=== PATIENT | male | born 1960 | race Caucasian/White ===

== ENCOUNTER 2018-03-11 11:37 | Inpatient (IN) ==
[2018-03-11] MEDS ORDERED: LIDOCAINE 1% 20 ML VIAL SQ ONE (11:38)
[2018-03-11] MEDS ORDERED: LACTATED RINGERS 1,000 ML IV ONE (12:12)
[2018-03-11] MEDS ORDERED: ONDANSETRON 4 MG/2 ML VIAL IV ONE (12:12)
--- NOTE | 2018-03-11 12:22 | Emergency Department Note ---
General Adult HPI - General Chief complaint: Constipation Stated complaint: No BM 7 days, altered LOC Time Seen by Provider: 03/11/18 11:43 Source: patient, family Mode of arrival: ambulatory Limitations: no limitations - History of Present Illness HPI Narrative: 58-year-old male in ED with present. Patient states he's been blacked out for most of the week. states patient went to bed 9 days ago and slept for 3 days, and has been completely out of it since he woke. The last 3 days has been the worst with hallucinating auditory and visual. states patient has had a temperature, chills, been emotional and crying. states she's had a hard time getting food in his system. He did eat one day ago small amount has been drinking 2-3 large Gatorade bottles of water a day. Patient states he does not remember the last time he had a bowel movement. states she believes probably one week ago. also states patient has abscess upper right side of his mouth. Patient states he does have a headache 10/10 throbbing across fr ontal which has been there for 3 days. states patient has had 3-4 projectile vomiting episodes in the last 2 days. states patient has also been dizzy and has an unsteady gait. 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 Last time he used was a week and a half ago. Patient does not drink alcohol. Does smoke marijuana daily. Patient is allergic to penicillin and morphine. Currently takes no medications daily. Patient does have history in 2003 large pallet of plywood fell on him causing spinal compression. Patient has had history of hydrencephalitis. Onset (ago): day(s) (10) Location: head, abdomen Radiation: non-radiation Severity: severe Severity scale (1-10): 10 Quality: stabbing, aching, sharp Consistency: constant Improves with: none Worsens with: movement Associated symptoms: Reports: confusion, fever/chills, headaches, loss of appetite, malaise, nausea/vomiting, weakness. Denies: chest pain, cough, diaphoresis, rash, seizure, shortness of breath, syncope Treatments Prior to Arrival: none - Related Data Home Medications Medication Instructions Recorded Confirmed No Known Home Meds 03/11/18 03/11/18 Allergies Allergy/AdvReac Type Severity Reaction Status Date / Time morphine [MORPHINE] Allergy Unknown Unknown Verified 03/11/18 14:52 penicillin G [PENICILLIN G] Allergy Unknown Unknown Verified 03/11/18 14:52 Review of Systems All systems ED: reviewed and negative except as stated. Past Medical History - Social History smoking status: Current every day smoker Alcohol use: Reports: None Drug use: Reports: methamphetamine (past 10 years-smokes it) Physical Exam Limitations: no limitations General appearance: alert, anxious, other (uncontrollable shaking) Head: atraumatic, normocephalic, normal inspection Eye: Present: normal appearance, PERRL, EOMI, visual miranda intact. Absent: conjunctival injection, nystagmus, miosis (constriction), mydriasis (dilation) ENT: normal oropharynx, mucous membranes dry, TM's normal bilaterally, normal external ear exam Neck: Present: normal inspection. Absent: tenderness, lymphadenopathy Chest: Present: normal inspection, symmetric chest wall rise. Absent: tenderness Respiratory: Present: normal lung sounds bilaterally. Absent: respiratory distress, rales/crackles, wheezes, stridor, accessory muscle use Cardiovascular: Present: regular rate, normal rhythm. Absent: systolic murmur, diastolic murmur Abdominal: Present: soft, tenderness (LLQ/LRQ), normal bowel sounds. Absent: distention, guarding, rebound, rigidity Abdominal tenderness: Present: RLQ, LLQ Extremities: Present: normal inspection. Absent: tenderness, pedal edema Back: Present: normal inspection, CVA tenderness (R). Absent: CVA tenderness (L) Neurological: Present: alert, oriented X3, CN II-XII intact Psychiatric: Present: normal affect, normal mood. Absent: depressed, agitated, anxious Skin: Present: warm, dry, intact, normal color. Absent: rash, cyanosis, diaphoresis, erythema, pallor Course Vital Signs Temperature 100.6 F H 03/11/18 11:38 Pulse Rate 84 03/11/18 11:38 Respiratory Rate 20 03/11/18 11:38 Blood Pressure 102/62 03/11/18 11:38 Pulse Oximetry (%) 99 03/11/18 11:38 Temperature 101.5 F H 03/11/18 15:43 Pulse Rate 138 H 03/11/18 14:01 Respiratory Rate 27 H 03/11/18 14:49 Blood Pressure 140/92 03/11/18 14:39 Pulse Oximetry (%) 100 03/11/18 14:01 Medical Decision Making - MDM Narrative Medical decision making narrative: Patient originally alert and oriented able to discuss current history. Patient was shivering uncontrollably upon arrival. Patient's temperature at that time was 100.6 pulse was 84 blood pressure was 102/62 with pulse ox 99% pain was 7/10. Patient was provided Dilaudid 0.5 mg IV every 15 minutes to help reduce pain patient was also provided 1 mg Ativan and saline 1 L bolus, along with 4 mg IV Zofran. Patient continued to shiver even with warm blankets on. Sodium 129, BUN 21, creatinine 2.0 Second bag of normal saline 1 L was provided as well as more Dilaudid. Patient was provided 1000 mg by mouth Tylenol. Patient became increasingly more agitated to the point he was hallucinating and aggressive towards staff. Temperature reassessed and temporal read high, rectal was 106.6, 165 pulse, 140/92. By this time WBC had returned at 23.7 pt also had large leukocytes in his urine. Patient was provided 5 mg Haldol and 0.5 mg Dilaudid. This helped calm him for CT scan. Patient had Arroyo catheter placed and Arroyo catheter temperature 104.2. was consulted on patient history and presentation. CT head/brain results show: Moderate enlargement of the lateral and third ventricles suggesting moderate hydrocephalus possibly due to cerebral aqueduct stenosis. Ventricles have increased modestly from the [address] abdomen and pelvis:Moderate ileus with a large amount of colonic stool. No acute finding Consulted hospitalist Dr. Moon, who advised cooling protocol, which was already in process with ice bags and cool fluid, IV Ofirmev (which was held as pt temperature had reduced to 99 temporal, 1G IV Cefoxitin, and a lumbar puncture if Abdominal/pelvic CT returned without cause of infection. - Lab Data Lab results reviewed: Yes I reviewed the patient's lab results. Result diagrams: 03/11/18 12:56 03/11/18 12:17 Lab Results 03/11/18 03/11/18 03/11/18 Range/Units 12:17 12:17 12:56 WBC TNP RBC TNP Hgb TNP Hct TNP POC Hct 41.0 (41.0-55.0) % MCV TNP MCH TNP MCHC TNP RDW TNP Plt Count TNP MPV TNP Gran % (38.0-78.0) % Lymph % (Auto) (15.5-49.0) % [place] % (Auto) (1.0-12.0) % Eos % (Auto) (0.0-7.0) % Baso % (Auto) (0.0-2.0) % Gran # (1.8-8.0) K/mcL Lymph # (Auto) (1.5-4.8) K/mcL [place] # (Auto) (0.1-0.9) K/mcL Eos # (Auto) (0.0-0.7) K/mcL Baso # (Auto) (0.0-0.3) K/mcL Differential Comment VBG Lactic Acid 2.0 (0.5-2.0) mmol/L POC Sodium 131 L (133-145) mmol/L Sodium 129 L (133-145) mmol/L POC Potassium 4.4 (3.3-5.1) mmol/L Potassium 4.4 (3.3-5.1) mmol/L POC Chloride 91 L (96-108) mmol/L Chloride 89 L (96-108) mmol/L Carbon Dioxide 25 (22-30) mmol/L POC Total CO2 26 (22-30) mmol/L Anion Gap 15.0 (8-16) POC BUN 21 H (6-20) mg/dl BUN 20 (6-20) mg/dl Creatinine 2.0 H (0.7-1.2) mg/dl POC Creatinine 2.0 H (0.7-1.2) mg/dl GFR Calculation 36 Glucose 119 H (70-105) mg/dL POC Glucose 121 H (70-105) mg/dL Calcium 9.7 (8.6-10.4) mg/dl POC WB Ioniz Calcium 1.15 L (1.16-1.32) mmol/L Total Bilirubin 0.3 (0.0-1.0) mg/dL AST 13 (0-37) U/l ALT 17 (0-40) U/l Alkaline Phosphatase 129 H (39-117) U/L Total Protein 7.8 (5.9-8.4) gm/dL Albumin 3.7 (3.2-5.2) gm/dL Globulin 4.1 H (2.2-3.7) gm/dL Albumin/Globulin Ratio 0.9 L (1.0-2.3) Urine Color Urine Appearance Urine pH (5.0-9.0) Ur Specific [place] (1.000-1.035) Urine Protein (NEG) mg/dL Urine Glucose (UA) (NEG) mg/dL Urine Ketones (NEG) mg/dL Urine Occult Blood (<0.03) mg/dL Urine Nitrate (NEG) Urine Bilirubin (NEG) mg/dL Urine Urobilinogen (NEG) mg/dL Ur Leukocyte Esterase (NEG) /uL Urine RBC (0-1) /hpf Urine WBC (0-4) /hpf Ur Squamous Epith Cells (0-4) /hpf Urine Bacteria (0) /hpf Hyaline Casts (0-2) /lpf Urine Mucus (0) /hpf Ur Culture Indicated? Urine Opiates Screen (NONDETECTED) Ur Oxycodone Screen (NONDETECTED) Urine Methadone Screen (NONDETECTED) Acetaminophen ug/mL Ur Barbiturates Screen (NONDETECTED) Ur Phencyclidine Scrn (NONDETECTED) Ur Amphetamines Screen (NONDETECTED) U Benzodiazepines Scrn (NONDETECTED) Urine Cocaine Screen (NONDETECTED) U Marijuana (THC) Screen (NONDETECTED) 03/11/18 03/11/18 03/11/18 Range/Units 12:56 12:56 14:26 WBC 23.7 H RBC 4.08 L Hgb 11.8 L Hct 35.7 L POC Hct (41.0-55.0) % MCV 87.5 MCH 28.9 MCHC 33.0 RDW 13.8 Plt Count 159 MPV 9.7 Gran % 89.3 H (38.0-78.0) % Lymph % (Auto) 4.1 L (15.5-49.0) % [place] % (Auto) 6.4 (1.0-12.0) % Eos % (Auto) 0.1 (0.0-7.0) % Baso % (Auto) 0.1 (0.0-2.0) % Gran # 21.1 H (1.8-8.0) K/mcL Lymph # (Auto) 1.0 L (1.5-4.8) K/mcL [place] # (Auto) 1.5 H (0.1-0.9) K/mcL Eos # (Auto) 0 (0.0-0.7) K/mcL Baso # (Auto) 0 (0.0-0.3) K/mcL Differential Comment VBG Lactic Acid (0.5-2.0) mmol/L POC Sodium (133-145) mmol/L Sodium (133-145) mmol/L POC Potassium (3.3-5.1) mmol/L Potassium (3.3-5.1) mmol/L POC Chloride (96-108) mmol/L Chloride (96-108) mmol/L Carbon Dioxide (22-30) mmol/L POC Total CO2 (22-30) mmol/L Anion Gap (8-16) POC BUN (6-20) mg/dl BUN (6-20) mg/dl Creatinine (0.7-1.2) mg/dl POC Creatinine (0.7-1.2) mg/dl GFR Calculation Glucose (70-105) mg/dL POC Glucose (70-105) mg/dL Calcium (8.6-10.4) mg/dl POC WB Ioniz Calcium (1.16-1.32) mmol/L Total Bilirubin (0.0-1.0) mg/dL AST (0-37) U/l ALT (0-40) U/l Alkaline Phosphatase (39-117) U/L Total Protein (5.9-8.4) gm/dL Albumin (3.2-5.2) gm/dL Globulin (2.2-3.7) gm/dL Albumin/Globulin Ratio (1.0-2.3) Urine Color Urine Appearance Urine pH (5.0-9.0) Ur Specific [place] (1.000-1.035) Urine Protein (NEG) mg/dL Urine Glucose (UA) (NEG) mg/dL Urine Ketones (NEG) mg/dL Urine Occult Blood (<0.03) mg/dL Urine Nitrate (NEG) Urine Bilirubin (NEG) mg/dL Urine Urobilinogen (NEG) mg/dL Ur Leukocyte Esterase (NEG) /uL Urine RBC (0-1) /hpf Urine WBC (0-4) /hpf Ur Squamous Epith Cells (0-4) /hpf Urine Bacteria (0) /hpf Hyaline Casts (0-2) /lpf Urine Mucus (0) /hpf Ur Culture Indicated? Urine Opiates Screen Suspect positive A (NONDETECTED) Ur Oxycodone Screen None detected (NONDETECTED) Urine Methadone Screen None detected (NONDETECTED) Acetaminophen < 5.0 ug/mL Ur Barbiturates Screen None detected (NONDETECTED) Ur Phencyclidine Scrn None detected (NONDETECTED) Ur Amphetamines Screen None detected (NONDETECTED) U Benzodiazepines Scrn None detected (NONDETECTED) Urine Cocaine Screen None detected (NONDETECTED) U Marijuana (THC) Screen Suspect positive A (NONDETECTED) 03/11/18 Range/Units 14:26 WBC RBC Hgb Hct POC Hct (41.0-55.0) % MCV MCH MCHC RDW Plt Count MPV Gran % (38.0-78.0) % Lymph % (Auto) (15.5-49.0) % [place] % (Auto) (1.0-12.0) % Eos % (Auto) (0.0-7.0) % Baso % (Auto) (0.0-2.0) % Gran # (1.8-8.0) K/mcL Lymph # (Auto) (1.5-4.8) K/mcL [place] # (Auto) (0.1-0.9) K/mcL Eos # (Auto) (0.0-0.7) K/mcL Baso # (Auto) (0.0-0.3) K/mcL Differential Comment VBG Lactic Acid (0.5-2.0) mmol/L POC Sodium (133-145) mmol/L Sodium (133-145) mmol/L POC Potassium (3.3-5.1) mmol/L Potassium (3.3-5.1) mmol/L POC Chloride (96-108) mmol/L Chloride (96-108) mmol/L Carbon Dioxide (22-30) mmol/L POC Total CO2 (22-30) mmol/L Anion Gap (8-16) POC BUN (6-20) mg/dl BUN (6-20) mg/dl Creatinine (0.7-1.2) mg/dl POC Creatinine (0.7-1.2) mg/dl GFR Calculation Glucose (70-105) mg/dL POC Glucose (70-105) mg/dL Calcium (8.6-10.4) mg/dl POC WB Ioniz Calcium (1.16-1.32) mmol/L Total Bilirubin (0.0-1.0) mg/dL AST (0-37) U/l ALT (0-40) U/l Alkaline Phosphatase (39-117) U/L Total Protein (5.9-8.4) gm/dL Albumin (3.2-5.2) gm/dL Globulin (2.2-3.7) gm/dL Albumin/Globulin Ratio (1.0-2.3) Urine Color Yellow Urine Appearance Cloudy Urine pH 6.0 (5.0-9.0) Ur Specific [place] 1.011 (1.000-1.035) Urine Protein 100 A (NEG) mg/dL Urine Glucose (UA) Negative (NEG) mg/dL Urine Ketones Neg (NEG) mg/dL Urine Occult Blood 0.2 A (<0.03) mg/dL Urine Nitrate Neg (NEG) Urine Bilirubin Neg (NEG) mg/dL Urine Urobilinogen Neg (NEG) mg/dL Ur Leukocyte Esterase 500 A (NEG) /uL Urine RBC 15 H (0-1) /hpf Urine WBC > 182 H (0-4) /hpf Ur Squamous Epith Cells 3 (0-4) /hpf Urine Bacteria Few A (0) /hpf Hyaline Casts 9 H (0-2) /lpf Urine Mucus Few (0) /hpf Ur Culture Indicated? Yes Urine Opiates Screen (NONDETECTED) Ur Oxycodone Screen (NONDETECTED) Urine Methadone Screen (NONDETECTED) Acetaminophen ug/mL Ur Barbiturates Screen (NONDETECTED) Ur Phencyclidine Scrn (NONDETECTED) Ur Amphetamines Screen (NONDETECTED) U Benzodiazepines Scrn (NONDETECTED) Urine Cocaine Screen (NONDETECTED) U Marijuana (THC) Screen (NONDETECTED) - Radiology Data Radiology results reviewed: Yes I reviewed the patient's radiology results. Abdominal x-ray: IMPRESSION: No acute disease. Moderate colonic stool Chest x-ray: Normal CT head and brain: IMPRESSION: Moderate enlargement of the lateral and third ventricles suggesting moderate hydrocephalus possibly due to cerebral aqueduct stenosis. Ventricles have increased modestly from the [address] abdominal /pelvis: IMPRESSION: Moderate ileus with a large amount of colonic stool. No acute finding Disposition Pt seen by W[employer] TECHNICIAN/PA only: No (Hemanth) Clinical Impression: Urinary tract infection Qualifiers: Urinary tract infection type: acute pyelonephritis Qualified Code(s): N10 - Acute pyelonephritis Disposition: Xfer As Inpt ([facility]) Condition: Undetermined Referrals: Long Kumari MD [Primary Care Provider] - Time of Disposition: 17:36
[2018-03-11] MEDS: HYDROmorphone 2 MG/ML VIAL IV PRN ×3 (12:27→15:20)
[2018-03-11 13:07] LABS: ALT/SGPT 17 U/l (0-40); Albumin 3.7 gm/dL (3.2-5.2); Albumin/Globulin Ratio 0.9 (1.0-2.3); Alkaline Phosphatase 129 U/L (39-117); Blood Urea Nitrogen 20 mg/dl (6-20)
[2018-03-11] MEDS ORDERED: 0.9 % SODIUM CHLORIDE 1,000 ML IV ONE (13:10)
--- NOTE | 2018-03-11 13:21 | Cat Scan Report ---
CLINICAL INFORMATION: Fever and confusion. Evaluate for encephalitis COMPARISON: 07/10/2006. TECHNIQUE: 2.5 mm helical slices were obtained in the skull base to vertex. Following reconstruction, axial reformatted images were reviewed at bone and parenchymal windows. The exam was performed using radiation dose optimization techniques including, but not limited to, automated exposure control, adjustment of the mA and/or kV according to patient size and use of iterative reconstruction technique. FINDINGS: Moderate enlargement of the lateral and third ventricle with reduced caliber of the cerebral aqueduct and fourth ventricle again appreciated. This suggests moderate hydrocephalus - possibly related to cerebral aqueduct stenosis. The ventricles increased slightly from previous CT. The sulci, fissures and cisterns are normal in size. No focal lesion seen within the cerebrum, brainstem or cerebellum. Bone windows show no osseous abnormality. IMPRESSION: Moderate enlargement of the lateral and third ventricles suggesting moderate hydrocephalus possibly due to cerebral aqueduct stenosis. Ventricles have increased modestly from the [address] CT. Interpreted and Authenticated by: Armando Ramon 03/11/18
--- NOTE | 2018-03-11 13:22 | XRay Report ---
CLINICAL INFORMATION: Fever and confusion COMPARISON: None. FINDINGS: The heart size, mediastinum and pulmonary vessels are unremarkable. The lungs are clear. There are no effusions. The bones and soft tissues are within normal limits. IMPRESSION: Normal chest. Interpreted and Authenticated by: Armando Ramon 03/11/18
--- NOTE | 2018-03-11 13:23 | XRay Report ---
CLINICAL INFORMATION: constipation COMPARISON: None. FINDINGS: Moderate stool is present within the colon, however the colon is normal caliber. Stomach and small bowel are unremarkable. There is no free air, pathologic calcification, organomegaly or soft tissue mass. Solid-appearing L4-5 and L5-S1 anterior/posterior fusion changes noted IMPRESSION: No acute disease. Moderate colonic stool Interpreted and Authenticated by: Armando Ramon 03/11/18
[2018-03-11] MEDS ORDERED: LORazepam 2 MG/ML VIAL IV ONE (13:41)
[2018-03-11 13:59] LABS: Basophils # (Auto) 0 K/mcL (0.0-0.3); Basophils % (Auto) 0.1 % (0.0-2.0); Eosinophils # (Auto) 0 K/mcL (0.0-0.7); Eosinophils % (Auto) 0.1 % (0.0-7.0); Granulocytes % (Auto) 89.3 % (38.0-78.0); Lymphocytes % (Auto) 4.1 % (15.5-49.0); Mean Cell Volume 87.5 fL (80.0-100.0); Monocytes # (Auto) 1.5 K/mcL (0.1-0.9); Monocytes % (Auto) 6.4 % (1.0-12.0); Platelet Count 159 K/mcL (140-440); RBC 4.08 M/mcL (4.50-5.90); Red Cell Distribution Width 13.8 % (11.5-14.5)
[2018-03-11] MEDS ORDERED: LEVOFLOXACIN 750 MG/150 ML BAG IV ONE (14:20)
[2018-03-11] MEDS ORDERED: ACETAMINOPHEN 325 MG TABLET PO ONE ×2 (14:49→14:51)
[2018-03-11] MEDS ORDERED: ACETAMINOPHEN 1,000 MG/100 ML BOTTLE IV ONE (14:51)
[2018-03-11] MEDS ORDERED: HALOPERIDOL LACTATE 5 MG/ML VIAL IV ONE (14:59)
[2018-03-11 15:26] LABS: Amphetamine Screen,Urine NONE DETECTED (NONDETECTED); Appearance,Urine CLOUDY; Bacteria,Urine FEW /hpf (0); Benzodiazepines Screen,Urine NONE DETECTED (NONDETECTED); Bilirubin,Urine NEG (NEG); Cocaine Screen,Urine NONE DETECTED (NONDETECTED); Color,Urine YELLOW; Glucose,Urine (UA) NEGATIVE (NEG); Leukocyte Esterase,Urine 500 /uL (NEG); Mucus,Urine FEW /hpf (0); Opiate Screen,Urine SUSPECT POSITIVE (NONDETECTED); Oxycodone, Urine Screen NONE DETECTED (NONDETECTED); Protein,Urine 100 mg/dL (NEG); Specific Gravity,Urine 1.011 (1.000-1.035); Urine Blood 0.2 mg/dL (<0.03); Urine Hyaline Cast 9 /lpf (0-2); Urine RBC 15 /hpf (0-1); Urine Squamous Epithelial Cell 3 /hpf (0-4); Urine WBC > 182 /hpf (0-4); Urobilinogen,Urine NEG (NEG)
--- NOTE | 2018-03-11 15:57 | Cat Scan Report ---
CLINICAL INFORMATION: No bowel movements. Abdominal pain and distention COMPARISON: None. TECHNIQUE: 0.625 mm helical slices were obtained from the mid heart through the subtrochanteric regions. Following reconstruction, 2.5 mm sagittal, coronal and axial reformatted images were processed and reviewed at bone and soft tissue windows.The exam was performed using radiation dose optimization techniques including, but not limited to, automated exposure control, adjustment of the mA and/or kV according to patient size and use of iterative reconstruction technique. FINDINGS: Lung bases show mild atelectasis in the posterior lower lobes. No effusions. The visualized heart is normal. Images through the abdomen show the noncontrasted gallbladder and bile ducts, liver, both adrenal glands, spleen, pancreas and aorta to be normal. Minimal perinephric stranding in both kidneys is nonspecific and commonly seen. It is likely within normal limits. No specific renal abnormality.There is no free air, free fluid or adenopathy. There is a large amount stool within the colon which is moderately dilated. The appendix, small bowel and stomach are normal. Images of the pelvis show urinary bladder is decompressed with a Arroyo catheter which is properly positioned. Seminal vesicles and prostate are unremarkable. Bone windows show L4-5 and L5-S1 anterior/posterior fusion and wide laminectomy. No focal osseous lesions. IMPRESSION: Moderate ileus with a large amount of colonic stool. No acute finding Interpreted and Authenticated by: Armando Ramon 03/11/18
--- NOTE | 2018-03-11 17:15 | Internal Med History&Physical ---
Medical - H&P: [facility] Patient information: Note initiated : 03/11/18 at 5:15 pm Service Date, if different from initiated Date: [] Patient: Nic Paula a 58 y/o M admitted on for No BM 7 days, altered LOC. Chief Complaint: [] Chief complaint: fever , confusion History of present illness: Mr. Paula is a 58 year old M who presents to the ER after 7 days onset of fever, generalized myalgia weakness and progressive confusion. Patient has associated high-grade fever and noticed a substantial decline in function. On presentation patient had a fever of 106.2 and was subsequently cooling protoc ol was initiated. CT abdomen/CT scan was unremarkable. Patient endorsed to photophobia and neck stiffness and subsequently LP was performed. Hospitalist service was consulted after blood cultures/urine cultures were performed. Initial white count 23.7 with significant pyuria and bandemia along with systolic blood pressures in 80s. Patient was started on acyclovir/cefepime/vancomycin for empiric encephalitis/meningitis treatment along with aggressive crystalloid for severe sepsis with multiorgan dysfunction management. At the time of evaluation patient is able to open eyes and responding to commands he however endorses to photophobia myalgia and neck stiffness. He denies sick contacts. He denies incontinence/body rash. He denies travel out of country. He currently is disabled and lives along with his girlfriend and dog. Review of systems Positive for lack of appetite, generalized body ache, headache confusion, weakness. Otherwise 10 point review systems negative Medical - H&P: H Medical history: History of encephalitis 2005 treated at [facility] Tobacco dependence Pertinent family history: Unremarkable Smoking status: Current every day smoker Medical - H&P: Meds Home Medications Medication Instructions Recorded Confirmed Type No Known Home Meds 03/11/18 03/11/18 History Allergies Allergy/AdvReac Type Severity Reaction Status Date / Time morphine [MORPHINE] Allergy Intermediate Rash Verified 03/11/18 18:00 penicillin G [PENICILLIN G] Allergy Unknown Unknown Verified 03/11/18 14:52 Medical - H&P: Exam - Constitutional Vitals: Temp Pulse Resp BP Pulse Ox 101.5 F H 138 H 27 H 140/92 100 03/11/18 15:43 03/11/18 14:01 03/11/18 14:49 03/11/18 14:39 03/11/18 14:01 General appearance: no acute distress Exam: Eye movements symmetrical, photophobia noted Head normocephalic oral cavity dry No ear nose discharge Neck no lymphadenopathy, neck stiffness present S1-S2 tachycardia Diminished breath sounds bases Skin no suspicious lesion Abdomen soft No joint swelling erythema No lymphedema Psych anxious and fatigued but responding to commands Neuro nonfocal Medical - H&P: Reslt - Labs CBC & Chem 7: 03/12/18 03:27 03/12/18 03:27 Labs: Short CBC 03/11/18 03/11/18 Range/Units 12:17 12:56 WBC TNP 23.7 H Hgb TNP 11.8 L Hct TNP 35.7 L Plt Count TNP 159 BMP 03/11/18 12:17 Sodium 129 L Potassium 4.4 Chloride 89 L Carbon Dioxide 25 BUN 20 Creatinine 2.0 H Glucose 119 H Calcium 9.7 Liver Function 03/11/18 Range/Units 12:17 Total Bilirubin 0.3 (0.0-1.0) mg/dL AST 13 (0-37) U/l ALT 17 (0-40) U/l Alkaline Phosphatase 129 H (39-117) U/L Albumin 3.7 (3.2-5.2) gm/dL Urine 03/11/18 Range/Units 14:26 Urine Color Yellow Urine Appearance Cloudy Urine pH 6.0 (5.0-9.0) Ur Specific [place] 1.011 (1.000-1.035) Urine Protein 100 A (NEG) mg/dL Urine Glucose (UA) Negative (NEG) mg/dL Medical - H&P: A/P (1) Severe sepsis Current visit: Yes Status: Acute * Septic shock-unclear etiology likely genitourinary versus encephalitis or combination of both. Aggressive crystalloids, finney cultures, broad antibiotic and pressure support if needed. Admit to ICU with night Butler score 18 and high risk mortality. Multiple underlying endorgan dysfunction noted on admission(AMS/acute renal failure) * Acute mental status change likely encephalitis-start empiric acyclovir. Appreciate ID consult * Complicated UTI-pancultures/antibiotic * Acute renal failure-endorgan dysfunction in light of septic shock. Crystalloid/pressure support/monitor renal function * Full code * Prophylaxis ED Plan * Septic shock management per guidelines * Empiric encephalitis antiviral/antibiotic coverage * ID consult * Monitor renal function * Encephalitis panel/blood culture/urine culture * ICU admit Overall very high complexity admitting this patient with multiorgan including encephalitis/renal failure requiring critical care management in ICU and close hemodynamic monitoring. 70 minutes spent on history and physical, additionally over 35 minutes spent on stabilizing patient in the setting of septic shock from encephalitis/complicated UTI with evidence of endorgan dysfunction, ICU care
[2018-03-11] MEDS ORDERED: ACETAMINOPHEN 325 MG TABLET PO PRN (17:48)
[2018-03-11] MEDS ORDERED: ONDANSETRON 4 MG/2 ML VIAL IV PRN (17:48)
[2018-03-11] MEDS ORDERED: POTASSIUM CHLORIDE 20 MEQ PACKET PO PRN (17:48)
[2018-03-11] MEDS ORDERED: VANCOMYCIN PER PHARMACY IV SCH (17:48)
[2018-03-11] MEDS ORDERED: MAGNESIUM SULFATE 2 GM/50 ML BAG IV PRN (17:48)
--- NOTE | 2018-03-11 17:50 | XRay Report ---
CLINICAL INFORMATION: Obtundation and fever. Possible encephalitis meningitis COMPARISON: None. TECHNIQUE: The procedure and risks including the possibility of bleeding, infection, CSF leak requiring blood patch were explained to the patient. Under fluoroscopic guidance, the right L2-3 intralaminar space was marked, prepped and locally anesthetized with 1% Lidocaine using a 25 gauge needle. A 22 gauge spinal needle was placed under fluoroscopy through the intralaminar space into the thecal sac. Approximately 18 cc of clear CSF was aspirated and sent to pathology for requested studies. There was no apparent complication. The patient tolerated procedure well. Fluoroscopy time 43 seconds IMPRESSION: Successful fluoroscopic guided lumbar puncture yielding 18 cc of clear CSF. No apparent complications. Interpreted and Authenticated by: Armando Ramon 03/11/18
[2018-03-11] MEDS: 0.9 % SODIUM CHLORIDE 1,000 ML IV SCH (17:57)
[2018-03-11] MEDS ORDERED: CEFEPIME 2 GM in DEXTROSE 5% IN WATER 50 ML IV SCH ×2 (18:16→19:00)
[2018-03-11 18:35] LABS: Glucose,CSF 82 mg/dL (45-75)
[2018-03-11] MEDS: SODIUM CHLORIDE 0.9% IV SCH ×2 (18:39→23:24)
[2018-03-11] MEDS: ACYCLOVIR SODIUM IV SCH ×2 (18:39→23:24)
[2018-03-11 18:49] LABS: C-Reactive Protein 32.1 mg/dl (0.0-0.8)
[2018-03-11 19:14] LABS: Appearance,CSF CLEAR; Nucleated Cells,CSF 0 /cumm (0-5); Red Blood Cell,CSF 0 /cumm (0-1)
[2018-03-11] MEDS ORDERED: ACYCLOVIR SODIUM 500 MG VIAL IV SCH (20:00)
[2018-03-11 20:12] LABS: Lymphocytes,CSF 38 % (40-80); Monocytes,CSF 63 % (15-45); Total Cell Ct,CSF 16
[2018-03-11] MEDS ORDERED: CEFEPIME 2 GM VIAL ONE (20:13)
[2018-03-11] MEDS: DOCUSATE SODIUM 100 MG CAPSULE PO SCH (20:32)
[2018-03-11] MEDS ORDERED: VANCOMYCIN 1,000 MG in 0.9 % SODIUM CHLORIDE 250 ML IV SCH (21:00)
[2018-03-11] MEDS ORDERED: SENNOSIDES/DOCUSATE SODIUM 1 TAB TABLET PO SCH (21:00)
[2018-03-11] MEDS: ACETAMINOPHEN 1,000 MG/100 ML BOTTLE IV PRN (21:56)
[2018-03-11] MEDS: 0.9 % SODIUM CHLORIDE 10 ML SYRINGE IV SCH (22:02)
[2018-03-12] MEDS: CEFEPIME 2 GM in DEXTROSE 5% IN WATER 50 ML IV SCH ×4 (00:39→21:11)
[2018-03-12] MEDS: ACETAMINOPHEN 1,000 MG/100 ML BOTTLE IV PRN ×3 (03:20→22:15)
[2018-03-12] MEDS: 0.9 % SODIUM CHLORIDE 1,000 ML IV SCH ×3 (04:01→15:02)
[2018-03-12 05:45] LABS: Mean Cell Volume 88.3 fL (80.0-100.0); Platelet Count 147 K/mcL (140-440); RBC 3.89 M/mcL (4.50-5.90); Red Cell Distribution Width 14.3 % (11.5-14.5)
[2018-03-12] MEDS: ACYCLOVIR SODIUM IV SCH (05:47)
[2018-03-12] MEDS: SODIUM CHLORIDE 0.9% IV SCH (05:47)
[2018-03-12] MEDS: 0.9 % SODIUM CHLORIDE 10 ML SYRINGE IV SCH ×3 (05:48→21:12)
[2018-03-12 06:09] LABS: ALT/SGPT 14 U/l (0-40); Albumin 2.5 gm/dL (3.2-5.2); Albumin/Globulin Ratio 0.7 (1.0-2.3); Alkaline Phosphatase 134 U/L (39-117); Bilirubin,Direct < 0.2 mg/dL (0.0-0.3); Blood Urea Nitrogen 17 mg/dl (6-20); Gamma Glutamyl Transpeptidase 55 U/L (8-61); Uric Acid 5.2 mg/dL (2.5-8.0)
[2018-03-12 09:27] LABS: Band Neutrophils % 40 % (0-10); Lymphocytes % 8 % (15-49); Metamyelocytes % 1 % (0-0); Monocytes % (Manual) 4 % (1-12); Myelocytes % 1 % (0-0); Platelet Estimate NORMAL (NORMAL); RBC Morphology NORMAL (NORMAL); Segmented Neutrophils % 46 % (38-78); Toxic Granulation FEW (NONE SEEN)
--- NOTE | 2018-03-12 09:41 | Emergency Department Note ---
ED Note Addendum Note Addendum: I saw this patient with Jacy TURNER. I agree with her evaluation management documentation. However we will need to have the following diagnoses: Sepsis with multiorgan failure, acute kidney injury,UTI versus pyelonephritis, encephalitis. We discussed the need for admission and Dr. Chester brought the pa tient in after lumbar puncture was done
[2018-03-12] MEDS: DOCUSATE SODIUM 100 MG CAPSULE PO SCH ×2 (09:55→21:11)
--- NOTE | 2018-03-12 10:28 | Internal Med Progress Note ---
Medical - PN: Subj Patient information: Note initiated : 03/12/18 at 10:25 am Service Date, if different from initiated Date: [] Patient: Nic Paula a 58 y/o M admitted on 03/11/18 for No BM 7 days, altered LOC. Chief Complaint: [] Interval history: Mr. Paula is a 58 year old M who presents to the ER after 7 days onset of fever, generalized myalgia weakness and progressive confusion. Patient has associated high-grade fever and noticed a substantial decline in function. On presentation patient had a fever of 106.2 and was subsequently cooling protocol was initiated. CT abdomen/CT scan was unremarkable. Patient endorsed to photophobia and neck stiffness and subsequently LP was performed. Hospitalist service was consulted after blood cultures/urine cultures were performed. Initial white count 23.7 with significant pyuria and bandemia along with systolic blood pressures in 80s. Patient was started on acyclovir/cefepime/vancomycin for empiric encephalitis/meningitis treatment along with aggressive crystalloid for severe sepsis with multiorgan dysfunction management. At the time of evaluation patient is able to open eyes and responding to commands he however endorses to photophobia myalgia and neck stiffness. He denies sick contacts. He denies incontinence/body rash. He denies travel out of country. He currently is disabled and lives along with his girlfriend and dog. 03/12-patient clinically improved. Hemodynamics stabilizing with map over 70. White count down from 23,000-16.7. E. coli bacteremia. Continue cefepime. Lumbar puncture 16 CSF WBCs however in the setting of gram-negative bacteremia, likely etiology for mental status change sepsis and endorgan dysfunction. DC acyclovir and continue cefepime. Repeat surveillance blood cultures. Continue ICU care. - Constitutional Vitals: Vital Signs Temp Pulse Resp BP Pulse Ox 97.5 F 101 H 14 93/67 98 03/12/18 07:30 03/12/18 07:38 03/12/18 07:30 03/12/18 07:30 03/12/18 07:38 Period Temp Pulse Resp BP Sys/Mckay Pulse Ox Last 24 Hr 70.1 F-106.2 F 84-150 9-27 79-143/48-92 74-100 Intake and Output 03/11/18 03/12/18 03/12/18 21:59 05:59 13:59 Intake Total 1300 1960 50 Output Total 1625 1810 110 Balance -325 150 -60 Weight 144 lb 12.8 oz Intake & Output: Intake & Output 03/11/18 03/12/18 03/12/18 21:59 05:59 13:59 Intake Total 1300 1960 50 Output Total 1625 1810 110 Balance -325 150 -60 Weight 144 lb 12.8 oz Intake: IV 1300 1600 50 Sodium Chloride 0.9% 1,000 ml @ 1000 1000 100 mls/hr IV .Q10H JOSHUA Rx#: [id number] Zovirax 600 mg In Sodium 100 100 Chloride 0.9% 100 ml @ 100 mls/ hr IV Q8H JOSHUA Rx#:[id number] Maxipime 2 gm In Dextrose 5% in 50 50 50 Water 50 ml @ 100 mls/hr IV Q8H JOSHUA Rx#:[id number] Vancomycin 1,000 mg In Sodium 250 Chloride 0.9% 250 ml @ 250 mls/ hr IV Q12H JOSHUA Rx#:[id number] Oral 0 360 Output: Urine Catheter Amount 1622 1810 110 Other: Urine Appearance Clear Clear Clear Sediment Sediment Sediment Uretheral ([place]royo) Clear Clear Clear Sediment Urine Color Pale Straw Straw Uretheral ([place]royo) Straw Straw Straw Urine Odor Normal General appearance: no acute distress Exam: Feeling weak and exhausted Nonlabored breathing Minimally anxious No telemetry event Medical - PN: Obj Da - Labs CBC & Chem 7: 03/12/18 03:27 03/12/18 03:27 Labs: Abnormal Lab Results 03/12/18 03/12/18 03/11/18 03:27 03:27 18:04 WBC 16.7 H RBC 3.89 L Hgb 11.3 L Hct 34.4 L Gran % Lymph % (Auto) Gran # Lymph # (Auto) [place] # (Auto) Band Neutrophils % 40 H Lymphocytes % 8 L Metamyelocytes % 1 H Myelocytes % 1 H WBC Morphology Abnorm A Toxic Granulation Few A ESR POC Sodium Sodium POC Chloride Chloride POC BUN Creatinine 1.6 H POC Creatinine Glucose POC Glucose POC WB Ioniz Calcium Phosphorus 2.6 L Alkaline Phosphatase 134 H C-Reactive Protein 32.1 H Albumin 2.5 L Globulin 3.8 H Albumin/Globulin Ratio 0.7 L Urine Protein Urine Occult Blood Ur Leukocyte Esterase Urine RBC Urine WBC Urine Bacteria Hyaline Casts CSF Lymphocytes CSF Monocytes CSF Glucose Urine Opiates Screen U Marijuana (THC) Screen 03/11/18 03/11/18 03/11/18 18:04 16:15 14:26 WBC RBC Hgb Hct Gran % Lymph % (Auto) Gran # Lymph # (Auto) [place] # (Auto) Band Neutrophils % Lymphocytes % Metamyelocytes % Myelocytes % WBC Morphology Toxic Granulation ESR 80 H POC Sodium Sodium POC Chloride Chloride POC BUN Creatinine POC Creatinine Glucose POC Glucose POC WB Ioniz Calcium Phosphorus Alkaline Phosphatase C-Reactive Protein Albumin Globulin Albumin/Globulin Ratio Urine Protein 100 A Urine Occult Blood 0.2 A Ur Leukocyte Esterase 500 A Urine RBC 15 H Urine WBC > 182 H Urine Bacteria Few A Hyaline Casts 9 H CSF Lymphocytes 38 L CSF Monocytes 63 H CSF Glucose 82 H Urine Opiates Screen U Marijuana (THC) Screen 03/11/18 03/11/18 03/11/18 14:26 12:56 12:17 WBC 23.7 H RBC 4.08 L Hgb 11.8 L Hct 35.7 L Gran % 89.3 H Lymph % (Auto) 4.1 L Gran # 21.1 H Lymph # (Auto) 1.0 L [place] # (Auto) 1.5 H Band Neutrophils % Lymphocytes % Metamyelocytes % Myelocytes % WBC Morphology Toxic Granulation ESR POC Sodium 131 L Sodium 129 L POC Chloride 91 L Chloride 89 L POC BUN 21 H Creatinine 2.0 H POC Creatinine 2.0 H Glucose 119 H POC Glucose 121 H POC WB Ioniz Calcium 1.15 L Phosphorus Alkaline Phosphatase 129 H C-Reactive Protein Albumin Globulin 4.1 H Albumin/Globulin Ratio 0.9 L Urine Protein Urine Occult Blood Ur Leukocyte Esterase Urine RBC Urine WBC Urine Bacteria Hyaline Casts CSF Lymphocytes CSF Monocytes CSF Glucose Urine Opiates Screen Suspect positive A U Marijuana (THC) Screen Suspect positive A Meds: Medications Acetaminophen (Tylenol) 650 mg PO Q4-6HP PRN PRN Reason: PAIN/FEVER > 101 Docusate Sodium (Colace) 100 mg PO BID [facility] Last Admin: 03/12/18 09:55 Dose: 100 mg Documented by: Magnesium Sulfate (Magnesium Sulfate) 2 gm in 50 mls @ 50 mls/hr IV UD PRN PRN Reason: MG = or < 1.7 Sodium Chloride (Sodium Chloride 0.9%) 1,000 mls @ 100 mls/hr IV .Q10H [facility] Stop: 03/13/18 09:47 Last Admin: 03/12/18 04:01 Dose: 100 mls/hr Documented by: Acetaminophen (Ofirmev) 1,000 mg in 100 mls @ 200 mls/hr IV Q6HP PRN PRN Reason: PAIN/FEVER > 101 Last Infusion: 03/12/18 04:01 Dose: Infused Documented by: Cefepime HCl 2 gm/ Dextrose 50 mls @ 100 mls/hr IV Q8H [facility] Last Infusion: 03/12/18 08:40 Dose: Infused Documented by: Ondansetron HCl (Zofran) 4 mg IV Q4-6HP PRN PRN Reason: Nausea And Vomiting Pneumococcal Polyvalent Vaccine (Pneumovax 23) 0.5 ml IM .ONCE ONE Stop: 03/13/18 10:01 Potassium Chloride (Klor-Con) 40 meq PO DAILYP PRN PRN Reason: K+ < 3.5 Senna/Docusate Sodium (Senna Plus Tablet) 1 tab PO HS [facility] Last Admin: 03/11/18 20:32 Dose: 1 tab Documented by: Sodium Chloride (Saline Flush) 10 ml IV Q8 [facility] Last Admin: 03/12/18 05:48 Dose: 10 ml Documented by: Medical - PN: A/P - Time Spent With Patient Total time spent is greater than 50% in coordination of care (as documented) at patient's floor/unit and/or counseling patient: 25 - 35 minutes (1) Severe sepsis Status: Acute Assessment and plan: * Gram-negative bacteremia-continue surveillance cultures. Source likely . Broad antibiotic coverage/ID consult * Septic shock-secondary to gram-negative bacteremia. Likely source. C ontinue broad antibiotic coverage/surveillance cultures/management per guidelines. White count down from 23-16. 40% bandemia. Multiple underlying endorgan dysfunction * Acute mental status change- likely secondary to sepsis end endorgan dysfunction-CSF 16 WBCs. Per ID unlikely secondary to encephalitis. DC acyclovir per ID * Complicated GNR UTI-continue antibiotic coverage * Acute renal failure-clinically improving. Creatinine down from 2-1.6 * Full code * Prophylaxis ED Plan * Continue broad antibiotic/surveillance cultures * DC acyclovir per ID * Monitor renal function * Encephalitis panel/blood culture/urine culture Current Visit: Yes Medical - PN: Qual - VTE Deep Vein Thrombosis/Pulmonary Embolism Present on Admission: No
--- NOTE | 2018-03-12 13:33 | Magnetic Resonance Report ---
CLINICAL INFORMATION: Hydrocephalus COMPARISON: Head CT 07/10/2006 and 03/11/2018 TECHNIQUE:Sagittal T1 FLAIR, axial T1 FLAIR, T2 FLAIR propeller, T2 propeller, gradient, diffusion, ADC and coronal T2 weighted images were acquired. FINDINGS: The proximal aqueduct of Sylvius has a funnel-shape with moderate narrowing distally. This has resulted in moderate obstructive hydrocephalus with moderate dilatation of both lateral and third ventricles. The corpus callosum is thinned and stretched superiorly due to lateral ventricle dilatation. There is also mild downward displacement of the third ventricle. The fourth ventricle and foramen of Luschka and Magendie, inferior to the cerebral aqueduct, are normal size - as expected in this condition. There is no evidence of transependymal CSF migration. Scattered chronic ischemic foci are noted in the the cerebral white matter. No restricted diffusion, edema, mass effect or hemorrhage. Signal void in the cerebral arteries, extra-axial cranial nerves, pituitary and orbits are all normal. 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 This is likely congenital, as there is no evidence of postinflammatory gliosis in the adjacent midbrain tectum or other secondary causes to explain aqueduct narrowing. The lateral and third ventricles show only slight increase in size between the [address], thus the condition does not appear to be significantly progressive Few scattered ischemic foci in the cerebral white matter Interpreted and Authenticated by: Armando Ramon 03/12/18
[2018-03-12] MEDS ORDERED: ACETAMINOPHEN 325 MG TABLET PO PRN (14:28)
[2018-03-12] MEDS ORDERED: MAGNESIUM SULFATE 2 GM/50 ML BAG IV PRN (14:28)
[2018-03-12] MEDS ORDERED: POTASSIUM CHLORIDE 20 MEQ PACKET PO PRN (14:28)
--- NOTE | 2018-03-12 15:59 | Infectious Disease Consult ---
History of Present Illness Patient information: Note initiated : 03/12/18 at 3:24 pm Service Date, if different from initiated Date: [] Patient: Nic Paula 58 y/o M admitted on 03/11/18 for No BM 7 days, altered LOC. Chief Complaint: [] Consult date: 03/12/18 Requesting Physician: Rich Moon Reason for Consult: Sepsis with concerns for [employer] infection Chief complaint: I was sick, having chills History of present illness: 58 year old man with PMHx pertinent for: - chronic low back pain after an accident in 2013 - opoid abuse Pt was brought by his on 03/11 with c/o of fever, shivering, body aches, and confusion. Pt does not remember the temp numbers, as he has difficulty remembering things now. Patient also endorsed having low or no appetite for the last few days, being constipated for about a week. He endorsed taking hydrocodone tablets [from his friend] to relieve his back pain before he was admitted. Patient had denied any sick contacts, rash, international travel. At admission, his rectal temp was 106.2 F, HR 138, BP 140/92, RR 20, and satting 99% on RA. Pt's WBC was 23.7 with bandemia, Na 129, Cl 89, Cr 2. Pt underwent CT head which showed "Moderate enlargement of the lateral and third ventricles suggesting moderate hydrocephalus possibly due to cerebral aqueduct stenosis. Ventricles have increased modestly from the 2007 CT". Patient underwent successful fluoroscopic guided lumbar puncture yielding 18 cc of clear CSF, which was sent for testing and cultures. Patient also underwent CT abdomen which showed "Moderate ileus with a large amount of colonic stool and minimal perinephric stranding in both kidneys." 2 sets of blood cultures and urine cultures were also sent. Patient was admitted and subsequently cooling protocol was initiated. Patient was started on IV acyclovir, IV cefepime, IV vancomycin for empiric encephalitis/meningitis treatment along with IV fluids. Patient improved in terms of his mental status and was alert, awake, oriented and he was transferred to ICU. He had expressed photophobia and neck stiffness at that time. As of today, his white cell count is improved to 16.7. Blood cultures were positive for E. coli [sensitivities pending] from 1 out of 2 sets along with positive urine cultures for E. coli [more than 100,000 CFU's per mL]. His CSF WBCs were 16 [38% lymphocytes], CSF protein of 27 and CSF glucose of 82, Gram stain was negative for any organisms and cultures were no growth till date. The send out test on CSF were pending. Review of Systems ROS unobtainable: due to mental status Past History Past medical history: History of encephalitis in 2004 Tobacco dependence Past family history: Not pertinent to the current presentation Past social history: Lives with her and dog in [place]. Mentions that the carpet is very dirty in the apartment and has not been changed since 1973 Medications and Allergies Home Medications Medication Instructions Recorded Confirmed Type No Known Home Meds 03/11/18 03/11/18 History Allergies Allergy/AdvReac Type Severity Reaction Status Date / Time morphine [MORPHINE] Allergy Intermediate Rash Verified 03/11/18 18:00 penicillin G [PENICILLIN G] Allergy Unknown Unknown Verified 03/11/18 14:52 Physical Examination Vital signs: Temp Pulse Resp BP Pulse Ox 35.9 C L 103 H 15 109/95 96 03/12/18 14:03 03/12/18 08:00 03/12/18 14:30 03/12/18 14:03 03/12/18 08:00 General appearance: no acute distress Eyes pulmonary: nonicteric Effort: normal Auscultation: bilateral: clear Cardiovascular: regular rate and rhythm Gastrointestinal: normoactive bowel sounds, soft, non-tender Integumentary: normal Extremities: no cyanosis, no edema pupils equal and round, other (Extraocular movements symmetric in all miranda of vision, no photophobia untorsed light exam, no neck stiffness) mood appropriate Results - Laboratory Findings CBC and BMP: 03/12/18 03:27 03/12/18 03:27 Abnormal lab findings: Abnormal Labs 03/11/18 03/11/18 03/11/18 12:17 12:56 14:26 WBC 23.7 H RBC 4.08 L Hgb 11.8 L Hct 35.7 L Gran % 89.3 H Lymph % (Auto) 4.1 L Gran # 21.1 H Lymph # (Auto) 1.0 L [place] # (Auto) 1.5 H Band Neutrophils % Lymphocytes % Metamyelocytes % Myelocytes % WBC Morphology Toxic Granulation ESR POC Sodium 131 L Sodium 129 L POC Chloride 91 L Chloride 89 L POC BUN 21 H Creatinine 2.0 H POC Creatinine 2.0 H Glucose 119 H POC Glucose 121 H POC WB Ioniz Calcium 1.15 L Phosphorus Alkaline Phosphatase 129 H C-Reactive Protein Albumin Globulin 4.1 H Albumin/Globulin Ratio 0.9 L Urine Protein Urine Occult Blood Ur Leukocyte Esterase Urine RBC Urine WBC Urine Bacteria Hyaline Casts CSF Lymphocytes CSF Monocytes CSF Glucose Urine Opiates Screen Suspect positive A U Marijuana (THC) Screen Suspect positive A 03/11/18 03/11/18 03/11/18 14:26 16:15 18:04 WBC RBC Hgb Hct Gran % Lymph % (Auto) Gran # Lymph # (Auto) [place] # (Auto) Band Neutrophils % Lymphocytes % Metamyelocytes % Myelocytes % WBC Morphology Toxic Granulation ESR 80 H POC Sodium Sodium POC Chloride Chloride POC BUN Creatinine POC Creatinine Glucose POC Glucose POC WB Ioniz Calcium Phosphorus Alkaline Phosphatase C-Reactive Protein Albumin Globulin Albumin/Globulin Ratio Urine Protein 100 A Urine Occult Blood 0.2 A Ur Leukocyte Esterase 500 A Urine RBC 15 H Urine WBC > 182 H Urine Bacteria Few A Hyaline Casts 9 H CSF Lymphocytes 38 L CSF Monocytes 63 H CSF Glucose 82 H Urine Opiates Screen U Marijuana (THC) Screen 03/11/18 03/12/18 03/12/18 18:04 03:27 03:27 WBC 16.7 H RBC 3.89 L Hgb 11.3 L Hct 34.4 L Gran % Lymph % (Auto) Gran # Lymph # (Auto) [place] # (Auto) Band Neutrophils % 40 H Lymphocytes % 8 L Metamyelocytes % 1 H Myelocytes % 1 H WBC Morphology Abnorm A Toxic Granulation Few A ESR POC Sodium Sodium POC Chloride Chloride POC BUN Creatinine 1.6 H POC Creatinine Glucose POC Glucose POC WB Ioniz Calcium Phosphorus 2.6 L Alkaline Phosphatase 134 H C-Reactive Protein 32.1 H Albumin 2.5 L Globulin 3.8 H Albumin/Globulin Ratio 0.7 L Urine Protein Urine Occult Blood Ur Leukocyte Esterase Urine RBC Urine WBC Urine Bacteria Hyaline Casts CSF Lymphocytes CSF Monocytes CSF Glucose Urine Opiates Screen U Marijuana (THC) Screen Microbiology: Microbiology 03/11/18 14:26 Urine - Clean Void Mid-Stream Urine Culture - Preliminary Gram negative bacillus 03/11/18 16:15 Cerebral Spinal Fluid - Cerebral Spinal Fluid Gram Stain - Final 03/11/18 16:15 Cerebral Spinal Fluid - Cerebral Spinal Fluid CSF Culture - Preliminary 03/11/18 14:40 Blood Blood Culture - Preliminary Gram negative bacillus 03/11/18 17:51 Groin - Both Right and Left MRSA (PCR) - Final Assessment and Plan - Narrative A/P Narrative: Assessment: 1. E. coli bacteremia and urinary tract infection: Infection was severe as it led to sepsis and also have been effect on the functioning of patient's brain contributing to confusion Likely sources urinary tract 2. Sepsis: Secondary to (1) 3. HSV encephalitis seems less likely for following reasons: Slightly elevated WBCs in the CSF with low percentage of lymphocytes, MRI negative for any temporal lobe enhancement or suggestive of any infection of the brain parenchyma, rapid improvement in mental status after hydration, and the fact that altered mental status could also be explained due to low sodium at the time of admission Recommendations: Continue IV cefepime 2 g every 8 hours for now. Will de-escalate based on sensitivities [to be available tomorrow] For reasons mentioned above, we can stop IV vancomycin, IV acyclovir Await repeat cultures sent by primary team Will decide duration of treatment based on if repeat cultures are positive and clinical course. As of now, I am thinking of a 2-week course of antibiotics We will follow Pedro Pablo Jain MD Infectious disease
[2018-03-12] MEDS: ONDANSETRON 4 MG/2 ML VIAL IV PRN ×2 (16:09→22:30)
[2018-03-12] MEDS: SENNOSIDES/DOCUSATE SODIUM 1 TAB TABLET PO SCH (21:11)
[2018-03-13] MEDS: 0.9 % SODIUM CHLORIDE 1,000 ML IV SCH (02:50)
[2018-03-13] MEDS: CEFEPIME 2 GM in DEXTROSE 5% IN WATER 50 ML IV SCH ×3 (05:36→21:07)
[2018-03-13] MEDS: 0.9 % SODIUM CHLORIDE 10 ML SYRINGE IV SCH ×3 (05:36→21:49)
[2018-03-13 05:49] LABS: ALT/SGPT 13 U/l (0-40); Albumin 2.4 gm/dL (3.2-5.2); Albumin/Globulin Ratio 0.7 (1.0-2.3); Alkaline Phosphatase 149 U/L (39-117); Bilirubin,Direct < 0.2 mg/dL (0.0-0.3); Blood Urea Nitrogen 15 mg/dl (6-20); Gamma Glutamyl Transpeptidase 60 U/L (8-61); Uric Acid 4.4 mg/dL (2.5-8.0)
[2018-03-13 06:50] LABS: Mean Corpuscular HGB Conc 34.8 g/dL (31.0-36.0); Platelet Count 222 K/mcL (140-440); RBC 3.72 M/mcL (4.50-5.90); Red Cell Distribution Width 13.6 % (11.5-14.5)
[2018-03-13 06:57] LABS: Band Neutrophils % 4 % (0-10); Eosinophils % (Manual) 1 % (0-7); Lymphocytes % 7 % (15-49); Monocytes % (Manual) 2 % (1-12); Platelet Estimate NORMAL (NORMAL); RBC Morphology NORMAL (NORMAL); Segmented Neutrophils % 86 % (38-78)
[2018-03-13] MEDS: OMEPRAZOLE 20 MG CAPSULE PO SCH (07:33)
--- NOTE | 2018-03-13 08:42 | Infectious Disease Prog Note ---
Subjective Patient information: Note initiated : 03/13/18 at 8:39 am Service Date, if different from initiated Date: [] Patient: Nic Paula 58 y/o M admitted on 03/11/18 for No BM 7 days, altered LOC. Chief Complaint: [] Interval history: Patient is feeling much better. He had occasional fevers last night. Denies any chills, nausea, vomiting, diarrhea. Had one big bowel movement early this morning, give him a huge relief as he was constipated for a week. Denies any shortness of breath, chest pain, joint pain, neck stiffness, photophobia. Objective Objective Narrative: ao x 3, in nad no thrush chest cta s1 s2 normal bs ++ soft, mild discomfort on deep palpation, no rebound no edema no knee joint swelling/redness/warmth - Vital Signs Vital signs: Vital Signs Temp Pulse Resp BP BP Pulse Ox 03/13/18 04:00 37.3 C H 108 H 14 104/76 95 03/13/18 00:01 38.6 C H 16 101/72 96 03/12/18 23:00 38.6 C H 03/12/18 22:15 39.2 C H 03/12/18 20:00 102 H 15 97 03/12/18 19:40 37.1 C 12 107/72 03/12/18 19:21 37.2 C 15 107/72 97 03/12/18 18:11 37.6 C H 12 03/12/18 16:45 38.1 C H 03/12/18 16:09 39.3 C H 19 126/73 97 03/12/18 16:06 21 03/12/18 16:00 39.3 C H 03/12/18 15:02 37.4 C H 15 125/64 98 03/12/18 14:30 15 03/12/18 14:03 35.9 C L 14 109/95 03/12/18 13:00 36.7 C 16 104/70 03/12/18 12:10 17 03/12/18 12:00 37.4 C H 15 97/71 03/12/18 11:27 15 108/79 03/12/18 10:00 37.7 C H 17 102/70 03/12/18 09:00 36.7 C 11 L 112/68 Intake and Output 03/12/18 03/13/18 03/13/18 21:59 05:59 13:59 Intake Total 2720 2400 50 Output Total 520 1650 Balance 2200 750 50 Intake: IV 1200 1100 50 Sodium Chloride 0.9% 1,000 ml @ 1000 1000 100 mls/hr IV .Q10H [facility] Rx#: [id number] Maxipime 2 gm In Dextrose 5% in 100 50 Water 50 ml @ 100 mls/hr IV Q8H [facility] Rx#:[id number] Oral 1520 1300 Output: Urine Catheter Amount 520 1650 Other: Meal Dinner Percent of Meal Consumed 100% Feeding Ability Independent Urine Appearance Clear Uretheral (Arroyo) Clear Urine Color Straw Uretheral ([place]roy[place]) Straw Stool Size Large Stool Color Brown Stool Consistency Normal for Patient # Bowel Movements 1 Weight 65.771 kg Intake & Output: Intake & Output 03/12/18 03/13/18 03/13/18 21:59 05:59 13:59 Intake Total 2720 2400 50 Output Total 520 1650 Balance 2200 750 50 Weight 65.771 kg Intake: IV 1200 1100 50 Sodium Chloride 0.9% 1,000 ml @ 1000 1000 100 mls/hr IV .Q10H [facility] Rx#: [id number] Maxipime 2 gm In Dextrose 5% in 100 50 Water 50 ml @ 100 mls/hr IV Q8H [facility] Rx#:[id number] Oral 1520 1300 Output: Urine Catheter Amount 520 1650 Other: Meal Dinner Percent of Meal Consumed 100% Feeding Ability Independent Urine Appearance Clear Uretheral ([place]royo) Clear Urine Color Straw Uretheral ([place]) Straw Stool Size Large Stool Color Brown Stool Consistency Normal for Patient # Bowel Movements 1 - Lab 03/13/18 04:10 03/13/18 04:10 Most recent lab results Calcium 8.6 mg/dl (8.6-10.4) 03/13/18 04:10 Phosphorus 3.0 mg/dL (2.7-4.5) 03/13/18 04:10 Magnesium 1.9 mg/dL (1.6-2.5) 03/13/18 04:10 Microbiology 03/11/18 15:05 Blood Blood Culture - Preliminary 03/11/18 14:26 Urine - Clean Void Mid-Stream Chlamydia trachomatis RNA (TMA) - Final 03/11/18 14:26 Urine - Clean Void Mid-Stream Neisseria gonorrhoeae RNA (TMA) - Final 03/11/18 14:26 Urine - Clean Void Mid-Stream Urine Culture - Preliminary Gram negative bacillus 03/11/18 16:15 Cerebral Spinal Fluid - Cerebral Spinal Fluid Gram Stain - Final 03/11/18 16:15 Cerebral Spinal Fluid - Cerebral Spinal Fluid CSF Culture - Preliminary 03/11/18 14:40 Blood Blood Culture - Preliminary Gram negative bacillus 03/11/18 17:51 Groin - Both Right and Left MRSA (PCR) - Final Medications Active Medications: Acetaminophen (Tylenol) 650 mg PO Q4-6HP PRN PRN Reason: PAIN/FEVER > 101 Docusate Sodium (Colace) 100 mg PO BID [facility] Last Admin: 03/12/18 21:11 Dose: 100 mg Documented by: CALEB Cefepime HCl 2 gm/ Dextrose 50 mls @ 100 mls/hr IV Q8H [facility] Last Infusion: 03/13/18 06:06 Dose: 0 mls/hr Documented by: Admin: 03/13/18 05:36 Dose: 100 mls/hr Documented by: Infusion: 03/12/18 21:45 Dose: 0 mls/hr Documented by: Admin: 03/12/18 21:11 Dose: 100 mls/hr Documented by: CALEB Magnesium Sulfate (Magnesium Sulfate) 2 gm in 50 mls @ 50 mls/hr IV UD PRN PRN Reason: MG = or < 1.7 Sodium Chloride (Sodium Chloride 0.9%) 1,000 mls @ 100 mls/hr IV .Q10H [facility] Stop: 03/13/18 09:47 Last Admin: 03/13/18 02:50 Dose: 100 mls/hr Documented by: Infusion: 03/13/18 02:50 Dose: 0 mls/hr Documented by: Admin: 03/12/18 15:02 Dose: 100 mls/hr Documented by: EVON Acetaminophen (Ofirmev) 1,000 mg in 100 mls @ 200 mls/hr IV Q6HP PRN PRN Reason: PAIN/FEVER > 101 Last Infusion: 03/12/18 22:45 Dose: 0 mls/hr Documented by: Admin: 03/12/18 22:15 Dose: 200 mls/hr Documented by: Infusion: 03/12/18 16:30 Dose: 0 mls/hr Documented by: Admin: 03/12/18 16:00 Dose: 200 mls/hr Documented by: EVON Omeprazole (Prilosec) 40 mg PO ACB [facility] Last Admin: 03/13/18 07:33 Dose: 40 mg Documented by: EVON Ondansetron HCl (Zofran) 4 mg IV Q4-6HP PRN PRN Reason: Nausea And Vomiting Last Admin: 03/12/18 22:30 Dose: 4 mg Documented by: Admin: 03/12/18 16:09 Dose: 4 mg Documented by: EVON Potassium Chloride (Klor-Con) 40 meq PO DAILYP PRN PRN Reason: K+ < 3.5 Senna/Docusate Sodium (Senna Plus Tablet) 1 tab PO HS [facility] Last Admin: 03/12/18 21:11 Dose: 1 tab Documented by: CALEB Sodium Chloride (Saline Flush) 10 ml IV Q8 [facility] Last Admin: 03/13/18 05:36 Dose: 10 ml Documented by: Admin: 03/12/18 21:12 Dose: 10 ml Documented by: CALEB Assessment and Plan - Narrative A/P Narrative: Assessment: 1. E. coli bacteremia and urinary tract infection: clinical improvement with decline in WBCs, pt feeling bettter Infection was severe as it led to sepsis and also have been effect on the functioning of patient's brain contributing to confusion Likely sources urinary tract 2. Sepsis: Secondary to (1) 3. HSV encephalitis seems less likely for following reasons: Slightly elevated WBCs in the CSF with low percentage of lymphocytes, MRI negative for any temporal lobe enhancement or suggestive of any infection of the brain parenchyma, rapid improvement in mental status after hydration, and the fact that altered mental status could also be explained due to low sodium at the time of admission 4. 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 Will de-escalate based on sensitivities [to be available later tomorrow, as it is being set up today] repeat Procalcitonin this am Anticipating a 2-week course of antibiotics. A midline might be considered if E coli resistant to fluroquinolones. If sensitive to fluroquinolones, a PO regimen could be used given 99% bioavailability of oral fluroquinolones. will make a final comment tomorrow when the sensitivities would be available Pedro Pablo Jain MD Infectious disease
[2018-03-13] MEDS ORDERED: PNEUMOCOCCAL 23-VAL P-SAC VAC 0.5 ML SYRINGE IM ONE (10:00)
--- NOTE | 2018-03-13 11:06 | Internal Med Progress Note ---
Medical - PN: Subj Patient information: Note initiated : 03/13/18 at 11:03 am Service Date, if different from initiated Date: [] Patient: Nic Paula a 58 y/o M admitted on 03/11/18 for No BM 7 days, altered LOC. Chief Complaint: [] Interval history: Mr. Paula is a 58 year old M who presents to the ER after 7 days onset of fever, generalized myalgia weakness and progressive confusion. Patient has associated high-grade fever and noticed a substantial decline in function. On presentation patient had a fever of 106.2 and was subsequently cooling protocol was initiated. CT abdomen/CT scan was unremarkable. Patient endorsed to photophobia and neck stiffness and subsequently LP was performed. Hospitalist service was consulted after blood cultures/urine cultures were performed. Initial white count 23.7 with significant pyuria and bandemia along with systolic blood pressures in 80s. Patient was started on acyclovir/cefepime/vancomycin for empiric encephalitis/meningitis treatment along with aggressive crystalloid for severe sepsis with multiorgan dysfunction management. At the time of evaluation patient is able to open eyes and responding to commands he however endorses to photophobia myalgia and neck stiffness. He denies sick contacts. He denies incontinence/body rash. He denies travel out of country. He currently is disabled and lives along with his girlfriend and dog. 03/12-patient clinically improved. Hemodynamics stabilizing with map over 70. White count down from 23,000-16.7. E. coli bacteremia. Continue cefepime. Lumbar puncture 16 CSF WBCs however in the setting of gram-negative bacteremia, likely etiology for mental status change sepsis and endorgan dysfunction. DC acyclovir and continue cefepime. Repeat surveillance blood cultures. Continue ICU care. 03/13-patient doing well. White count downtrending at 14.9. Febrile but clinically much improved. Bandemia resolved. Creatinine improved from 2-1.2. Blood cultures positive for E. coli await sensitivities. Will de-escalate in 24-hour as per ID recommendations. Continue cefepime every 8, target 2 weeks antibiotics - Constitutional Vitals: Vital Signs Temp Pulse Resp BP Pulse Ox 99.2 F H 108 H 14 104/76 95 03/13/18 04:00 03/13/18 04:00 03/13/18 04:00 03/13/18 04:00 03/13/18 04:00 Period Temp Pulse Resp BP Sys/Mckay Pulse Ox Last 24 Hr 96.6 F-102.8 F 102-108 12-21 97-126/64-95 95-98 Intake and Output 03/12/18 03/13/18 03/13/18 21:59 05:59 13:59 Intake Total 2720 2400 50 Output Total 520 1650 Balance 2200 750 50 Weight 145 lb Intake & Output: Intake & Output 03/12/18 03/13/18 03/13/18 21:59 05:59 13:59 Intake Total 2720 2400 50 Output Total 520 1650 Balance 2200 750 50 Weight 145 lb Intake: IV 1200 1100 50 Sodium Chloride 0.9% 1,000 ml @ 1000 1000 100 mls/hr IV .Q10H [facility] Rx#: [id number] Maxipime 2 gm In Dextrose 5% in 100 50 Water 50 ml @ 100 mls/hr IV Q8H [facility] Rx#:[id number] Oral 1520 1300 Output: Urine Catheter Amount 520 1650 Other: Meal Dinner Percent of Meal Consumed 100% Feeding Ability Independent Urine Appearance Clear Uretheral (Arroyo) Clear Urine Color Straw Uretheral (Arroyo) Straw Stool Size Large Stool Color Brown Stool Consistency Normal for Patient # Bowel Movements 1 General appearance: cooperative, no acute distress Exam: Doing well No overnight events No anxiety no labored breathing No abdominal pain or distention Medical - PN: Obj Da - Labs CBC & Chem 7: 03/13/18 04:10 03/13/18 04:10 Labs: Abnormal Lab Results 03/13/18 03/13/18 03/12/18 04:10 04:10 03:27 WBC 14.9 H RBC 3.72 L Hgb 11.1 L Hct 32.0 L Gran % Lymph % (Auto) Gran # Lymph # (Auto) [place] # (Auto) Seg Neutrophils % 86 H Band Neutrophils % Lymphocytes % 7 L Metamyelocytes % Myelocytes % WBC Morphology Toxic Granulation ESR POC Sodium Sodium POC Chloride Chloride POC BUN Creatinine 1.6 H POC Creatinine Glucose POC Glucose POC WB Ioniz Calcium Phosphorus 2.6 L Alkaline Phosphatase 149 H 134 H C-Reactive Protein Albumin 2.4 L 2.5 L Globulin 3.8 H Albumin/Globulin Ratio 0.7 L 0.7 L Urine Protein Urine Occult Blood Ur Leukocyte Esterase Urine RBC Urine WBC Urine Bacteria Hyaline Casts CSF Lymphocytes CSF Monocytes CSF Glucose Urine Opiates Screen U Marijuana (THC) Screen 03/12/18 03/11/18 03/11/18 03:27 18:04 18:04 WBC 16.7 H RBC 3.89 L Hgb 11.3 L Hct 34.4 L Gran % Lymph % (Auto) Gran # Lymph # (Auto) [place] # (Auto) Seg Neutrophils % Band Neutrophils % 40 H Lymphocytes % 8 L Metamyelocytes % 1 H Myelocytes % 1 H WBC Morphology Abnorm A Toxic Granulation Few A ESR 80 H POC Sodium Sodium POC Chloride Chloride POC BUN Creatinine POC Creatinine Glucose POC Glucose POC WB Ioniz Calcium Phosphorus Alkaline Phosphatase C-Reactive Protein 32.1 H Albumin Globulin Albumin/Globulin Ratio Urine Protein Urine Occult Blood Ur Leukocyte Esterase Urine RBC Urine WBC Urine Bacteria Hyaline Casts CSF Lymphocytes CSF Monocytes CSF Glucose Urine Opiates Screen U Marijuana (THC) Screen 03/11/18 03/11/18 03/11/18 16:15 14:26 14:26 WBC RBC Hgb Hct Gran % Lymph % (Auto) Gran # Lymph # (Auto) [place] # (Auto) Seg Neutrophils % Band Neutrophils % Lymphocytes % Metamyelocytes % Myelocytes % WBC Morphology Toxic Granulation ESR POC Sodium Sodium POC Chloride Chloride POC BUN Creatinine POC Creatinine Glucose POC Glucose POC WB Ioniz Calcium Phosphorus Alkaline Phosphatase C-Reactive Protein Albumin Globulin Albumin/Globulin Ratio Urine Protein 100 A Urine Occult Blood 0.2 A Ur Leukocyte Esterase 500 A Urine RBC 15 H Urine WBC > 182 H Urine Bacteria Few A Hyaline Casts 9 H CSF Lymphocytes 38 L CSF Monocytes 63 H CSF Glucose 82 H Urine Opiates Screen Suspect positive A U Marijuana (THC) Screen Suspect positive A 03/11/18 03/11/18 12:56 12:17 WBC 23.7 H RBC 4.08 L Hgb 11.8 L Hct 35.7 L Gran % 89.3 H Lymph % (Auto) 4.1 L Gran # 21.1 H Lymph # (Auto) 1.0 L [place] # (Auto) 1.5 H Seg Neutrophils % Band Neutrophils % Lymphocytes % Metamyelocytes % Myelocytes % WBC Morphology Toxic Granulation ESR POC Sodium 131 L Sodium 129 L POC Chloride 91 L Chloride 89 L POC BUN 21 H Creatinine 2.0 H POC Creatinine 2.0 H Glucose 119 H POC Glucose 121 H POC WB Ioniz Calcium 1.15 L Phosphorus Alkaline Phosphatase 129 H C-Reactive Protein Albumin Globulin 4.1 H Albumin/Globulin Ratio 0.9 L Urine Protein Urine Occult Blood Ur Leukocyte Esterase Urine RBC Urine WBC Urine Bacteria Hyaline Casts CSF Lymphocytes CSF Monocytes CSF Glucose Urine Opiates Screen U Marijuana (THC) Screen Meds: Medications Acetaminophen (Tylenol) 650 mg PO Q4-6HP PRN PRN Reason: PAIN/FEVER > 101 Docusate Sodium (Colace) 100 mg PO BID [facility] Last Admin: 03/12/18 21:11 Dose: 100 mg Documented by: Cefepime HCl 2 gm/ Dextrose 50 mls @ 100 mls/hr IV Q8H [facility] Last Infusion: 03/13/18 06:06 Dose: Infused Documented by: Magnesium Sulfate (Magnesium Sulfate) 2 gm in 50 mls @ 50 mls/hr IV UD PRN PRN Reason: MG = or < 1.7 Acetaminophen (Ofirmev) 1,000 mg in 100 mls @ 200 mls/hr IV Q6HP PRN PRN Reason: PAIN/FEVER > 101 Last Infusion: 03/12/18 22:45 Dose: Infused Documented by: Omeprazole (Prilosec) 40 mg PO ACB [facility] Last Admin: 03/13/18 07:33 Dose: 40 mg Documented by: Ondansetron HCl (Zofran) 4 mg IV Q4-6HP PRN PRN Reason: Nausea And Vomiting Last Admin: 03/12/18 22:30 Dose: 4 mg Documented by: Potassium Chloride (Klor-Con) 40 meq PO DAILYP PRN PRN Reason: K+ < 3.5 Senna/Docusate Sodium (Senna Plus Tablet) 1 tab PO HS [facility] Last Admin: 03/12/18 21:11 Dose: 1 tab Documented by: Sodium Chloride (Saline Flush) 10 ml IV Q8 [facility] Last Admin: 03/13/18 05:36 Dose: 10 ml Documented by: Medical - PN: A/P - Time Spent With Patient Total time spent is greater than 50% in coordination of care (as documented) at patient's floor/unit and/or counseling patient: 25 - 35 minutes (1) Severe sepsis Status: Acute Assessment and plan: * E. coli bacteremia-await surveillance cultures. Source likely acute pyelonephritis. Broad antibiotic coverage/ID consult. We will de-escalate in 24 hours as per ID * Septic shock-secondary to E. coli bacteremia. Clinically resolved. White count down to 14.7 from 23,000. Antibiotics for total of 2 weeks * Acute pyonephritis-continue 2 weeks antibiotic * Acute mental status change- likely secondary to sepsis end endorgan dysfunction-CSF 16 WBCs. Per ID unlikely secondary to encephalitis. DC acyclovir per ID * Acute renal failure-Creatinine down from 2-1.6->1.2 * Full code * Prophylaxis ED Plan * De-escalate antibiotics in 24 hours as per ID * Antibiotics for 2 weeks * PT OT * Discharge planning * PICC line placement if surveillance cultures negative in 24 hours Current Visit: Yes Medical - PN: Qual - VTE Deep Vein Thrombosis/Pulmonary Embolism Present on Admission: No
[2018-03-13] MEDS: DOCUSATE SODIUM 100 MG CAPSULE PO SCH ×2 (12:51→21:05)
[2018-03-13] MEDS: ACETAMINOPHEN 1,000 MG/100 ML BOTTLE IV PRN ×2 (14:09→21:06)
[2018-03-13] MEDS ORDERED: NICOTINE 14 MG PATCH ONE (18:59)
[2018-03-13] MEDS: SENNOSIDES/DOCUSATE SODIUM 1 TAB TABLET PO SCH (21:05)
[2018-03-13] MEDS ORDERED: IBUPROFEN 200 MG TABLET PO ONE (22:11)
[2018-03-13] MEDS: HYDROmorphone 2 MG/ML VIAL IV PRN (22:20)
[2018-03-13] MEDS ORDERED: HYDROmorphone 2 MG/ML VIAL ONE (22:20)
[2018-03-14] MEDS: CEFEPIME 2 GM in DEXTROSE 5% IN WATER 50 ML IV SCH (05:49)
[2018-03-14] MEDS: 0.9 % SODIUM CHLORIDE 10 ML SYRINGE IV SCH ×3 (05:50→20:16)
[2018-03-14 05:57] LABS: Mean Cell Volume 87.7 fL (80.0-100.0); Mean Corpuscular HGB Conc 32.5 g/dL (31.0-36.0); RBC 4.13 M/mcL (4.50-5.90); Red Cell Distribution Width 14.7 % (11.5-14.5)
[2018-03-14 06:46] LABS: ALT/SGPT 15 U/l (0-40); Albumin 2.6 gm/dL (3.2-5.2); Albumin/Globulin Ratio 0.8 (1.0-2.3); Alkaline Phosphatase 153 U/L (39-117); Bilirubin,Direct 0.2 mg/dL (0.0-0.3); Blood Urea Nitrogen 14 mg/dl (6-20); Gamma Glutamyl Transpeptidase 67 U/L (8-61); Uric Acid 4.4 mg/dL (2.5-8.0)
[2018-03-14] MEDS: OMEPRAZOLE 20 MG CAPSULE PO SCH (07:00)
[2018-03-14 07:29] LABS: Anisocytosis FEW (NONE SEEN); Band Neutrophils % 2 % (0-10); Eosinophils % (Manual) 1 % (0-7); Lymphocytes % 16 % (15-49); Monocytes % (Manual) 6 % (1-12); Myelocytes % 1 % (0-0); Platelet Estimate NORMAL (NORMAL); RBC Morphology ABNORM (NORMAL); Segmented Neutrophils % 74 % (38-78)
[2018-03-14 07:30] LABS: Platelet Count 197 K/mcL (140-440)
[2018-03-14] MEDS: HYDROmorphone 2 MG/ML VIAL IV PRN ×3 (07:43→20:13)
[2018-03-14] MEDS: DOCUSATE SODIUM 100 MG CAPSULE PO SCH ×2 (08:28→20:11)
[2018-03-14] MEDS ORDERED: POTASSIUM CHLORIDE 20 MEQ PACKET PO ONE (08:48)
--- NOTE | 2018-03-14 08:55 | Event Note ---
Sensitivities for E. coli available on blood and urine, both isolates are finney- sensitive except for Ampicillin and Amp-sulbactam. Pt;s vital signs and labs reviewed from today. Repeat blood Cx from 03/12 are NGTD, CSF Cx are NGTD. Recs: - Stop IV Cefepime - Start PO Levofloxacin 750 mg once daily with stop date of 03/26/18 to finish a 2-week course - Given fever in last 24 hrs, will recommend not discharging the patient today and if afebrile today, he could be discharged tomorrow Please call me for any questions. Pedro Pablo Jain MD Infectious diseases
[2018-03-14] MEDS ORDERED: LEVOFLOXACIN 750 MG/150 ML BAG IV SCH (10:00)
[2018-03-14] MEDS ORDERED: NICOTINE 14 MG PATCH TOPICAL SCH (10:00)
[2018-03-14] MEDS ORDERED: ACETAMINOPHEN 1,000 MG/100 ML BOTTLE IV PRN (11:33)
[2018-03-14] MEDS ORDERED: MAGNESIUM SULFATE 2 GM/50 ML BAG IV PRN (11:33)
[2018-03-14] MEDS ORDERED: POTASSIUM CHLORIDE 20 MEQ PACKET PO PRN (11:33)
[2018-03-14] MEDS ORDERED: ACETAMINOPHEN 325 MG TABLET PO PRN (11:33)
[2018-03-14] MEDS: ONDANSETRON 4 MG/2 ML VIAL IV PRN (15:04)
--- NOTE | 2018-03-14 16:16 | Internal Med Progress Note ---
Medical - PN: Subj Patient information: Note initiated : 03/14/18 at 4:13 pm Service Date, if different from initiated Date: [] Patient: Nic Paula a 58 y/o M admitted on 03/11/18 for No BM 7 days, altered LOC. Chief Complaint: [] Interval history: Mr. Paula is a 58 year old M who presents to the ER after 7 days onset of fever, generalized myalgia weakness and progressive confusion. Patient has associated high-grade fever and noticed a substantial decline in function. On presentation patient had a fever of 106.2 and was subsequently cooling protocol was initiated. CT abdomen/CT scan was unremarkable. Patient endorsed to photophobia and neck stiffness and subsequently LP was performed. Hospitalist service was consulted after blood cultures/urine cultures were performed. Initial white count 23.7 with significant pyuria and bandemia along with systolic blood pressures in 80s. Patient was started on a cyclovir/cefepime/vancomycin for empiric encephalitis/meningitis treatment along with aggressive crystalloid for severe sepsis with multiorgan dysfunction management. At the time of evaluation patient is able to open eyes and responding to commands he however endorses to photophobia myalgia and neck stiffness. He denies sick contacts. He denies incontinence/body rash. He denies travel out of country. He currently is disabled and lives along with his girlfriend and dog. 03/12-patient clinically improved. Hemodynamics stabilizing with map over 70. White count down from 23,000-16.7. E. coli bacteremia. Continue cefepime. Lumbar puncture 16 CSF WBCs however in the setting of gram-negative bacteremia, likely etiology for mental status change sepsis and endorgan dysfunction. DC acyclovir and continue cefepime. Repeat surveillance blood cultures. Continue ICU care. 03/13-patient doing well. White count downtrending at 14.9. Febrile but clinically much improved. Bandemia resolved. Creatinine improved from 2-1.2. Blood cultures positive for E. coli await sensitivities. Will de-escalate in 24-hour as per ID recommendations. Continue cefepime every 8, target 2 weeks antibiotics 03/14 Patient seen and examined, no acute overnight events, WBC trending down, fever still persistent had fever last night again this afternoon. Discussed case with infectious disease transition to levofloxacin. Monitor the patient until afebrile for 24 hours d/c arroyo Pertinent JELANI: Denies headache, dizziness Denies chest pain, palpitations Denies cough or shortness of breath Denies abdominal pain, nausea or vomiting. - Constitutional Vitals: Vital Signs Temp Pulse Resp BP Pulse Ox 97.9 F 92 H 18 117/85 99 03/14/18 15:15 03/14/18 08:00 03/14/18 15:15 03/14/18 15:15 03/14/18 15:15 Period Temp Pulse Resp BP Sys/Mckay Pulse Ox Last 24 Hr 97.2 F-101.5 F 87-92 16-20 109-134/60-97 94-100 Intake and Output 03/14/18 03/14/18 03/14/18 05:59 13:59 21:59 Intake Total 550 100 Output Total 1700 1100 1850 Balance -1700 -550 -1750 Intake & Output: Intake & Output 03/14/18 03/14/18 03/14/18 05:59 13:59 21:59 Intake Total 550 100 Output Total 1700 1100 1850 Balance -1700 -550 -1750 Intake: IV 50 100 Maxipime 2 gm In Dextrose 5% in 50 Water 50 ml @ 100 mls/hr IV Q8H [facility] Rx#:[id number] Oral 500 Output: Urine Catheter Amount 1700 1100 1250 Emesis 600 Other: Meal Lunch Percent of Meal Consumed 50% Feeding Ability Independent Urine Appearance Sediment Clear Clear Uretheral ([place]) Clear Sediment Urine Color Bright Yellow Bright Yellow Bright Yellow Uretheral ([place]) Straw Urine Odor Strong Normal Normal Stool Size Moderate # Bowel Movements 1 Exam: Constitutional; Afebrile, cooperative, alert, not in distress. Respiratory system: Air Entry equal on both sides, No crackles or wheezing, no rhonchi. CVS- Rate rhythm regular, S1,S2 heard, no gallop, no rub. Abdomen- Soft nontender abdomen, no organomegaly, no tenderness, no guarding or rigidity, BILLPOSTER- AOOx3, moving all extremities, no gross focal deficit noted. Medical - PN: Obj Da - Labs CBC & Chem 7: 03/14/18 03:36 03/14/18 03:36 Labs: Abnormal Lab Results 03/14/18 03/14/18 03/13/18 03:36 03:36 04:10 WBC 13.3 H RBC 4.13 L Hgb 11.8 L Hct 36.2 L RDW 14.7 H Seg Neutrophils % Band Neutrophils % Lymphocytes % Metamyelocytes % Myelocytes % 1 H WBC Morphology Toxic Granulation RBC Morphology Abnorm A Anisocytosis Few A ESR Potassium 3.2 L Creatinine Phosphorus 2.5 L GGT 67 H Alkaline Phosphatase 153 H 149 H C-Reactive Protein Albumin 2.6 L 2.4 L Globulin Albumin/Globulin Ratio 0.8 L 0.7 L CSF Lymphocytes CSF Monocytes CSF Glucose 03/13/18 03/12/18 03/12/18 04:10 03:27 03:27 WBC 14.9 H 16.7 H RBC 3.72 L 3.89 L Hgb 11.1 L 11.3 L Hct 32.0 L 34.4 L RDW Seg Neutrophils % 86 H Band Neutrophils % 40 H Lymphocytes % 7 L 8 L Metamyelocytes % 1 H Myelocytes % 1 H WBC Morphology Abnorm A Toxic Granulation Few A RBC Morphology Anisocytosis ESR Potassium Creatinine 1.6 H Phosphorus 2.6 L GGT Alkaline Phosphatase 134 H C-Reactive Protein Albumin 2.5 L Globulin 3.8 H Albumin/Globulin Ratio 0.7 L CSF Lymphocytes CSF Monocytes CSF Glucose 03/11/18 03/11/18 03/11/18 18:04 18:04 16:15 WBC RBC Hgb Hct RDW Seg Neutrophils % Band Neutrophils % Lymphocytes % Metamyelocytes % Myelocytes % WBC Morphology Toxic Granulation RBC Morphology Anisocytosis ESR 80 H Potassium Creatinine Phosphorus GGT Alkaline Phosphatase C-Reactive Protein 32.1 H Albumin Globulin Albumin/Globulin Ratio CSF Lymphocytes 38 L CSF Monocytes 63 H CSF Glucose 82 H Meds: Medications Acetaminophen (Tylenol) 650 mg PO Q4-6HP PRN PRN Reason: PAIN/FEVER > 101 Docusate Sodium (Colace) 100 mg PO BID [facility] Hydromorphone HCl (Dilaudid) 0.5 mg IV Q2HP PRN PRN Reason: PAIN LEVEL > 6 Last Admin: 03/14/18 13:40 Dose: 0.5 mg Documented by: Levofloxacin (Levaquin) 750 mg in 150 mls @ 100 mls/hr IV Q24H [facility] Magnesium Sulfate (Magnesium Sulfate) 2 gm in 50 mls @ 50 mls/hr IV UD PRN PRN Reason: MG = or < 1.7 Acetaminophen (Ofirmev) 1,000 mg in 100 mls @ 200 mls/hr IV Q6HP PRN PRN Reason: PAIN/FEVER > 101 Last Infusion: 03/14/18 14:20 Dose: Infused Documented by: Nicotine (Nicoderm) 14 mg TOPICAL DAILY@1000 [facility] Omeprazole (Prilosec) 40 mg PO ACB [facility] Ondansetron HCl (Zofran) 4 mg IV Q4-6HP PRN PRN Reason: Nausea And Vomiting Last Admin: 03/14/18 15:04 Dose: 4 mg Documented by: Potassium Chloride (Klor-Con) 40 meq PO DAILYP PRN PRN Reason: K+ < 3.5 Senna/Docusate Sodium (Senna Plus Tablet) 1 tab PO HS [facility] Sodium Chloride (Saline Flush) 10 ml IV Q8 [facility] Last Admin: 03/14/18 15:04 Dose: 10 ml Documented by: Medical - PN: A/P - Time Spent With Patient Total time spent is greater than 50% in coordination of care (as documented) at patient's floor/unit and/or counseling patient: - Narrative A/P Narrative: A/P Ecoli bactermia - Levofloxacin for now, repeat cultures are negative, Sepsis -improving slowly,pt still febrile, wbc elevated but trending down Acute pyelenephritis -management as above Altered mental status/ Septic encephalopathy -resolved Acute kidney injury improving DVT hep sq Full code Medical - PN: Qual - VTE Deep Vein Thrombosis/Pulmonary Embolism Present on Admission: No
[2018-03-14] MEDS: HEPARIN 5,000 UNIT/ML VIAL SQ SCH (20:12)
[2018-03-14] MEDS ORDERED: SENNOSIDES/DOCUSATE SODIUM 1 TAB TABLET PO SCH (21:00)
[2018-03-15] MEDS: 0.9 % SODIUM CHLORIDE 10 ML SYRINGE IV SCH ×2 (04:25→12:39)
[2018-03-15 06:48] LABS: Mean Cell Volume 87.1 fL (80.0-100.0); Mean Corpuscular HGB Conc 32.8 g/dL (31.0-36.0); RBC 4.29 M/mcL (4.50-5.90); Red Cell Distribution Width 14.5 % (11.5-14.5)
[2018-03-15 07:07] LABS: ALT/SGPT 30 U/l (0-40); Albumin 2.8 gm/dL (3.2-5.2); Albumin/Globulin Ratio 0.8 (1.0-2.3); Alkaline Phosphatase 156 U/L (39-117); Bilirubin,Direct < 0.2 mg/dL (0.0-0.3); Blood Urea Nitrogen 10 mg/dl (6-20); Gamma Glutamyl Transpeptidase 71 U/L (8-61); Uric Acid 3.8 mg/dL (2.5-8.0)
[2018-03-15] MEDS ORDERED: OMEPRAZOLE 20 MG CAPSULE PO SCH (07:30)
[2018-03-15 07:48] LABS: Anisocytosis FEW (NONE SEEN); Band Neutrophils % 2 % (0-10); Basophils % (Manual) 1 % (0-2); Eosinophils % (Manual) 1 % (0-7); Lymphocytes % 12 % (15-49); Monocytes % (Manual) 12 % (1-12); Myelocytes % 3 % (0-0); Platelet Count 298 K/mcL (140-440); Platelet Estimate NORMAL (NORMAL); RBC Morphology ABNORM (NORMAL); Segmented Neutrophils % 69 % (38-78)
[2018-03-15] MEDS ORDERED: LEVOFLOXACIN 750 MG/150 ML BAG IV SCH (09:00)
[2018-03-15] MEDS: HEPARIN 5,000 UNIT/ML VIAL SQ SCH (09:30)
[2018-03-15] MEDS: DOCUSATE SODIUM 100 MG CAPSULE PO SCH (09:30)
[2018-03-15] MEDS: HYDROmorphone 2 MG/ML VIAL IV PRN (09:42)
[2018-03-15] MEDS ORDERED: NICOTINE 14 MG PATCH TOPICAL SCH (10:00)
--- NOTE | 2018-03-15 10:36 | Discharge Summary ---
Medical - DS: Prov Patient information: Note initiated : 03/15/18 at 10:33 am Service Date, if different from initiated Date: [] Patient: Nic Paula a 58 y/o M admitted on 03/11/18 for No BM 7 days, altered LOC. Chief Complaint: [] Date of admission: 03/11/18 17:38 Discharge date: 03/15/18 Primary care physician: Long Kumari Consults: 03/11/18 15:41 Consult to Physician [CONS] Stat Comment: Consulting Provider: Rich Moon Reason For Exam: Physician to Consult 03/11/18 18:13 Consult to Physician [CONS] Routine Comment: Consulting Provider: Pedro Pablo Jain Reason For Exam: Physician to Consult Discharging clinician: [facility] - DS: Meds - Discharge Medications Prescriptions: Levofloxacin 750 mg PO DAILY #10 tablet Active and Home Medications: Home Medications No Known Home Meds 03/11/18 [History Confirmed 03/11/18 Last Taken Unknown] Medical - DS: Hosp Hospital course: Mr. Paula is a 58 year old M who presents to the ER after 7 days onset of fever, generalized myalgia weakness and progressive confusion. Patient has associated high-grade fever and noticed a substantial decline in function. On presentation patient had a fever of 106.2 and was subsequently cooling protocol was initiated. CT abdomen/CT scan was unremarkable. Patient endorsed to photophobia and neck stiffness and subsequently LP was performed. Hospitalist service was consulted after blood cultures/urine cultures were performed. Initial white count 23.7 with significant pyuria and bandemia along with systolic blood pressures in 80s. Patient was started on acyclovir/cefepime/vancomycin for empiric encephalitis/meningitis treatment along with aggressive crystalloid for severe sepsis with multiorgan dysfunction management. At the time of evaluation patient is able to open eyes and responding to commands he however endorses to photophobia myalgia and neck stiffness. He denies sick contacts. He denies incontinence/body rash. He denies travel out of country. He currently is disabled and lives along with his girlfriend and dog. 03/12-patient clinically improved. Hemodynamics stabilizing with map over 70. White count down from 23,000-16.7. E. coli bacteremia. Continue cefepime. Lumbar puncture 16 CSF WBCs however in the setting of gram-negative bacteremia, likely etiology for mental status change sepsis and endorgan dysfunction. DC acyclovir and continue cefepime. Repeat surveillance blood cultures. Continue ICU care. 03/13-patient doing well. White count downtrending at 14.9. Febrile but clinically much improved. Bandemia resolved. Creatinine improved from 2-1.2. Blood cultures positive for E. coli await sensitivities. Will de-escalate in 24-hour as per ID recommendations. Continue cefepime every 8, target 2 weeks antibiotics 03/14 Patient seen and examined, no acute overnight events, WBC trending down, fever still persistent had fever last night again this afternoon. Discussed case with infectious disease transition to levofloxacin. Monitor the patient until afebrile for 24 hours /3 Pt seen examined, no acute issues, tolerating po diet well, ambulating well, last fever yesterday afternoon. Repeat blood cultures are negative, GPC in one bottle is coag neg staph Pt to be discharged with oral levofloxacin 750mg daily for another 10 days to complete a 2 week course. Discharge diagnosis: Pyelonephritis. - Time Spent with Patient Total time spent providing and/or coordinating discharge services: Less than 30 minutes Medical - DS: Exam - Constitutional Vitals: Vital Signs Temp Pulse Resp BP BP Pulse Ox 03/15/18 06:30 98.6 F 14 116/80 100 03/15/18 03:04 98.8 F 96 H 12 120/85 100 03/15/18 00:00 98.0 F 104 H 18 139/90 97 03/14/18 20:00 99.2 F H 90 16 121/77 93 03/14/18 15:15 97.9 F 18 117/85 99 03/14/18 13:50 101.1 F H 03/14/18 11:51 98 F 16 125/91 100 03/14/18 11:50 98 F 16 125/91 100 Intake and Output 03/14/18 03/15/18 03/15/18 21:59 05:59 13:59 Intake Total 100 737 Output Total 2350 525 Balance -2250 212 Intake: IV 100 Oral 737 Output: Urine Catheter Amount 1250 Void Amount 500 525 Emesis 600 Other: Meal Lunch Percent of Meal Consumed 50% Feeding Ability Independent Urine Appearance Clear Clear Urine Color Bright Yellow Bright Yellow Urine Odor Normal # Voids 1 525 Weight 137 lb 12.8 oz Additional comments: Constitutional; Afebrile, cooperative, alert, not in distress. Eyes- No icterus, , No periorbital swelling Ears- Ext ear normal, hearing normal to conversation. Neck- Midline trachea, supple Respiratory system: Air Entry equal on both sides, No crackles or wheezing, no rhonchi. CVS- Rate rhythm regular, S1,S2 heard, no gallop, no rub. Abdomen- Soft nontender abdomen, no organomegaly, no tenderness, no guarding or rigidity, [employer]ED [employer]- AOOx3, moving all extremities, no gross focal deficit noted. Medical - DS: Data Labs on day of discharge: Labs from last 24 hours 03/15/18 03/15/18 05:02 05:02 WBC 12.1 H RBC 4.29 L Hgb 12.3 L Hct 37.4 L MCV 87.1 MCH 28.6 MCHC 32.8 RDW 14.5 Plt Count 298 MPV 8.8 Total Counted 100 Seg Neutrophils % 69 Band Neutrophils % 2 Lymphocytes % 12 L Monocytes % (Manual) 12 Eosinophils % (Manual) 1 Basophils % (Manual) 1 Myelocytes % 3 H Platelet Estimate Normal RBC Morphology Abnorm A Anisocytosis Few A Sodium 138 Potassium 4.0 Chloride 100 Carbon Dioxide 27 Anion Gap 11.0 BUN 10 Creatinine 1.0 GFR Calculation 83 Glucose 112 H Uric Acid 3.8 Calcium 9.4 Phosphorus 2.9 Magnesium 2.1 Total Bilirubin 0.2 Direct Bilirubin < 0.2 GGT 71 H AST 39 H ALT 30 Alkaline Phosphatase 156 H Lactate Dehydrogenase 191 Total Protein 6.4 Albumin 2.8 L Globulin 3.6 Albumin/Globulin Ratio 0.8 L Triglycerides 173 H Preliminary micro results at discharge 03/11/18 15:05 Blood Culture - Preliminary Blood Gram positive cocci 03/12/18 12:20 Blood Culture - Preliminary Blood 03/12/18 12:28 Blood Culture - Preliminary Blood 03/11/18 14:40 Blood Culture - Preliminary Blood Gram negative bacillus Medical - DS: A/P - Patient/Caregiver Discharge Instructions Activity: increase activity as tolerated Diet: Regular Diet Additional Instructions: Take levofloxacin 750mg once daily for another 10 days, Go to the ER if worsening fever, chest pain, or any other acute complaints follow up with your PCP in 2 weeks - Follow up Plan Follow up with: Long Kumari MD [Primary Care Provider] - Disposition: Home, Self-Care Prognosis: Good Rehab Potential: Good Overall status at discharge: patient is progressing back to baseline Medical - DS: Qual - VTE Deep Vein Thrombosis/Pulmonary Embolism Present on Admission: No
[2018-03-15] MEDS: ONDANSETRON 4 MG/2 ML VIAL IV PRN (10:56)
[2018-03-18 07:11] LABS: LCM IGG <1:1; LCM IGM <1:1; Measles IGG AB CSF <1:64; Measles IGM AB CSF <1:1
== END 2018-03-15 12:41 | disposition home or self-care (01) | DRG 871 ==
LOC: ED 11:37 → ICU 17:25 → MEDSUR 03-14 14:20
PROVIDERS: ADMIT Internal Medicine; ATTEND Internal Medicine